=== PATIENT | female | born 1935 | race Caucasian/White ===

== ENCOUNTER 2017-06-29 15:01 | Emergency (ER) | payer MEDICARE, OTHER ==
[~2017-06-29] VITALS: Ht 158.8 cm; Wt 59.1 kg
[2017-06-29 15:08] VITALS: BP 123/77; PULSE 57; RESP 14; O2SAT 99
--- NOTE | 2017-06-29 15:32 | ED.REPORT ---
HPI-Dyspnea / Wheezing Date of Service Jun 29, 2017 ED Provider: Es Tao MD Mrs. Benoit is a 82-year-old female for history of hypothyroidism presents to the ED with shortness of breath for the past 5 days. Patient denies feeling short of breath but her and the people around her believe she is short of breath. She feels like her bra was just too tight which restricted her breathing. Patient noted that she is wearing a different bra today and denies being short of breath. She denies fevers or chills, cough, wheezing, headache, chest pain, chest tightness, or GERD-like symptoms. She is currently in no pain. Nursing Notes Stated Complaint: UC SENT/SOB Chief Complaint: Respiratory Distress Nursing Notes Reviewed: Yes Allergies: Coded Allergies: morphine (Verified Allergy, Unknown, 06/29/17) General Time Seen by MD: 15:31 Chief Complaint Shortness of breath Hx Obtained From: Patient, Spouse Sudden in Onset?: No Onset Occurred: 5 days ago Symptom Duration: Waxes and wanes Location: : None Associated with: Denies: Chest pain, Cough, Fever, Nausea, Sore throat, Vomiting, Wheeze Pertinent Negative: Pt denies other symptoms Pertinent Negative: Exacerbated by nothing Risk Factors CAD Risk Stratification No Diabetes mellitus, No Hypertension, No Smoking PERC Rule Age 50 or over Well's Criteria for PE Well's PE Score: 0-2 pts (low risk 3.6%) Past Medical History Past Medical History Hypothyroidism GERD Past Surgical History Left shoulder rotator cuff Reports: Hysterectomy Smoking History Never Smoker Social History Alcohol Use: Denies alcohol use Drug Use: Denies drug use Other Social History: Ambulatory Status Independent Review of Systems Basic Review of Systems Eyes: Vision NL, No discharge GI: No abdominal pain, No anorexia, No nausea, No vomiting : No dysuria, No frequency Hematologic: No bleeding, No bruising Endocrine: No cold intolerance, No heat intolerance, No weight gain, No weight loss Neurologic: NL mental status, No weakness, No numbness Psychiatric: Normal thought content Constitutional: Denies: Chills, Fever Respiratory: Denies: Dyspnea on exertion, Non-productive cough, Wheezing Cardiovascular: Denies: Chest pain, Palpitations, Syncope Complete sys rev & neg: except as marked. Physical Exam Initial Vital Signs Vital Signs (First) Date Time Temp Pulse Resp B/P Pulse Ox O2 Delivery O2 Flow Rate FiO2 9/20/17 15:08 37.0 57 14 123/77 99 Room Air Initial VS: Reviewed Head / Eyes: Atraumatic, Normocephalic, PERRL ENT: Mucous membranes moist, Conjunctiva normal, No scleral icterus Abdomen / GI: Soft, Non-tender, No guarding, No rebound, No distention Extremities: No swelling, No tenderness Skin: Warm, Dry, No cyanosis Neurologic: Alert, Oriented, Nonfocal Psychiatric: Mood/affect normal, Behavior normal, Normal thought content General/Constitutional: Awake, Alert Respiratory / Chest: Breath sounds NL, Breath sounds = bilat, No respiratory distress, No rales, No rhonchi, No wheezing, No retractions, No stridor Cardiovascular: Regular rhythm, Heart sounds NL, Peripheral circulation NL Heart Rate / Rhythm: Positive: Bradycardia Interpretation & Diagnostics Lab Results Interpretation Result Diagram: 06/29/17 1702 06/29/17 1702 Test 06/29/17 17:02 White Blood Count 4.5th/mm3 (3.8-10.1) Red Blood Count 4.19mil/mm3 (3.90-5.20) Hemoglobin 13.7g/dL (12.0-15.6) Hematocrit 40.9% (35.0-46.0) Mean Corpuscular Volume 97.6fL (81-100) Mean Corpuscular Hemoglobin 32.7pg (27.0-35.0) Mean Corpuscular Hemoglobin Concent 33.5% (32.0-37.0) Red Cell Distribution Width 12.6% (12.3-15.4) Platelet Count 195bil/L (150-400) Neutrophils (%) (Auto) 42.0% (40-74) Lymphocytes (%) (Auto) 43.0% (14-46) Monocytes (%) (Auto) 11.2% (4-12) Eosinophils (%) (Auto) 2.9% (0-5) Basophils (%) (Auto) 0.7% (0-3) Sodium Level 144mEq/L (134-144) Potassium Level 5.0mEq/L (3.5-5.2) Chloride Level 108mEq/L (97-108) Carbon Dioxide Level 24mmol/L (18-29) Blood Urea Nitrogen 16mg/dL (8-27) Creatinine 0.98mg/dL (0.57-1.00) Estimat Glomerular Filtration Rate 78mL/min (>59) Glucose Level 90mg/dL (60-99) Calcium Level 9.6mg/dL (8.5-10.1) Magnesium Level 2.4mg/dL (1.6-2.6) Total Bilirubin 0.3mg/dL (0.0-1.2) Aspartate Amino Transf (AST/SGOT) 28U/L (0-50) Alanine Aminotransferase (ALT/SGPT) 21U/L (0-32) Alkaline Phosphatase 70U/L (25-165) Troponin T < 0.010ug/L (0.0-0.011) Pro-B-Type Natriuretic Peptide 486.3pg/mL (0-738) Total Protein 7.7g/dL (6.4-8.4) Albumin 4.2g/dL (3.4-5.0) Thyroid Stimulating Hormone (TSH) 3.770uIU/mL (0.450-4.500) Hold Mckeon Top Tube Received (Received) ECG Interpretation ECG Interpretation: Sinus bradycardia with no signs of ischemia Time: 16:16 Interpreted by: ED physician Normal ECG Interpretation: Normal sinus rhythm Rhythm / Conduction: Bradycardia X-Ray Chest Interpretation Chest Xray Interpretation: Surgical changes and devices: None. Lungs and pleura: No pleural effusions or pneumothorax. Lungs are clear. Mediastinum: Mediastinal contours appear normal. Heart size is normal. Bones and chest wall: No suspicious bony lesions. Overlying soft tissues appear unremarkable. IMPRESSION: No acute disease View: Portable Interpretation / Wet Read by: Interpret - Radiologist Re-Eval/Medical Decision Med Decision/Clinical Course Patient was sent to the ED from urgent care with complaints of shortness of breath. Upon arrival to the ED she was SpO2 99% on RA. She was not tachycardic and afebrile. Repeat EKG done in the ED showed sinus bradycardia with no signs of ischemia. Vertebral chest x-ray shows no signs of infection. CBC, CMP, TSH, troponins are all within normal range. Patient's shortness of breath is not due to infection or cardiovascular causes, okay for discharge at this time. Discharge & Departure Impression: Primary Impression: Dyspnea Dyspnea type: unspecified Qualified Code: R06.00 - Dyspnea, unspecified Disposition: Home Discharge Condition All VS Reviewed: Yes Condition: Stable Patient Instructions: Shortness of Breath (ED) Additional Instructions: After doing lab work, EKG, and chest x-ray, we have determined that your shortness of breath is not due to an infectious or cardiovascular cause. If you experience worsening symptoms of shortness of breath with exertion, dyspnea with exertion, sweating, numbness and tingling down the arms, jaw pain, indigestion with chest pain that does not go away with rest. Return to the emergency department Referrals: Paty Aguilar (PCP) Attending Statement Pt seen and examined Agree with assessment and plan as above No acute findings, no continued dyspnea Stable for discharge Es Tao MD Jun 29, 2017 15:32 Margie Beyer DO Jun 29, 2017 15:42
--- NOTE | 2017-06-29 16:50 | DRSVH ---
PROCEDURE: X-RAY CHEST ONE VIEW, PORTABLE ([id number]) INDICATIONS: dyspnea TECHNIQUE: One view of the chest was acquired. COMPARISON: [facility], , CHEST 2VW, 12/27/2012, 14:46. FINDINGS: Surgical changes and devices: None. Lungs and pleura: No pleural effusions or pneumothorax. Lungs are clear. Mediastinum: Mediastinal contours appear normal. Heart size is normal. Bones and chest wall: No suspicious bony lesions. Overlying soft tissues appear unremarkable. IMPRESSION: No acute disease Dictated by: Cortez Jesus M.D. on 06/29/2017 at 16:48 Approved by: Cortez Jesus M.D. on 06/29/2017 at 16:49
[2017-06-29 17:04] VITALS: BP 150/72; PULSE 51; RESP 16; O2SAT 96
[2017-06-29 17:12] LABS: BASOPHILS % (AUTO) 0.7 % (0-3); EOSINOPHILS % (AUTO) 2.9 % (0-5); MONOCYTES % (AUTO) 11.2 % (4-12); Mean Corpuscular Hemoglobin 32.7 pg (27.0-35.0); Mean Corpuscular Volume 97.6 fL (81-100); Platelet Count 195 bil/L (150-400)
[2017-06-29 17:27] LABS: Magnesium 2.4 mg/dL (1.6-2.6)
[2017-06-29 17:41] LABS: TROPONIN T < 0.010 ug/L (0.0-0.011)
[2017-06-29 18:08] VITALS: BP 147/64; PULSE 57; RESP 17; O2SAT 100
== END 2017-06-29 18:09 | disposition home or self-care (01) ==
LOC: SED 15:01
DX: R06.00 Dyspnea, unspecified (principal); E03.9 Hypothyroidism, unspecified; K21.9 Gastro-esophageal reflux disease without esophagitis; Z88.5 Allergy status to narcotic agent